=== PATIENT | male | born 1985 | race Caucasian/White ===

== ENCOUNTER → 2017-08-20 | Outpatient (CLI) | payer OTHER ==
--- NOTE | ~2017-08-20 | 24HR ---
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 2. Predominant rhythm sinus rhythm at an average heart rate of 76 bpm, range 48-126 bpm. Longest RR interval 1.4 seconds. 3. No atrial fibrillation or atrial flutter. No heart block. Occasional atrial premature complexes and atrial couplets. Supraventricular ectopy represented 3.5% of the total QRS complexes. No supraventricular tachycardia 4. Occasional, isolated premature ventricular complexes. No ventricular couplets, triplets or ventricular tachycardia 5. Symptoms reported as "uneven heartbeat" corresponded to isolated atrial premature complexes Electronically Signed On 08-24-2017 7:15:51 CDT by Pedro Arteaga [email or web address] <ELECTRONICALLY SIGNED> By: Pedro Arteaga MD, [facility] 08/24/17 0715 1144 1144 Pedro Arteaga MD, [facility] /EPI
== END ==
LOC: CV 07:59
DX: Z01.818 Encounter for other preprocedural examination (principal); R00.2 Palpitations